=== PATIENT | male | born 2000 | race Caucasian/White ===

== ENCOUNTER → 2021-09-15 | Outpatient (CLI) | payer SELFPAY ==
--- NOTE | 2021-09-15 15:18 | Diagnostic Imaging Report ---
INDICATION: Left ankle injury. TIME OF EXAM: 2:45 PM. COMPARISON: No prior studies are available for comparison. FINDINGS: Wrapping overlies the ankle obscuring some bone detail. The alignment is normal. The ankle mortise is well-maintained. The talar dome is smooth. No definite fracture or dislocation is identified. IMPRESSION: No acute bony abnormality is detected. Dictated by: Dictated on workstation # [id number]
== END ==
LOC: ORTHO 14:28
PROVIDERS: ATTEND Orthopaedic Surgery
DX: S99.912A Unspecified injury of left ankle, initial encounter (principal); X58.XXXA Exposure to other specified factors, initial encounter
CPT/HCPCS: 73610; G0463; 99202

== ENCOUNTER → 2021-10-13 | Outpatient (CLI) | payer OTHER | LOC: ORTHO 11:09 | PROVIDERS: ATTEND Orthopaedic Surgery | DX: S93.402D Sprain of unspecified ligament of left ankle, subsequent encounter (principal); X58.XXXD Exposure to other specified factors, subsequent encounter | CPT/HCPCS: 99212 ==